=== PATIENT | male | born 1955 | race Caucasian/White ===

== ENCOUNTER → 2017-01-08 | Outpatient (CLI) | payer OTHER ==
[2017-01-08 10:13] LABS: CHOLESTEROL 179 mg/dL (<200); HDL CHOLESTEROL 40 mg/dL (>40); LDL CHOLESTEROL 114 mg/dL (<100); TC:HDL 4.5 Ratio (Not establshd); TRIGLYCERIDE 127 mg/dL (<150); VLDL 25 mg/dL (<40)
== END ==
LOC: LABMALL 09:26
PROVIDERS: Internal Medicine
DX: E78.01 Familial hypercholesterolemia (principal)